=== PATIENT | female | born 1970 | race Two or more races ===

== ENCOUNTER 2025-04-01 12:54 | Emergency (ER) | payer OTHER ==
[~2025-04-01] VITALS: Ht 149.9 cm; Wt 64.9 kg
[2025-04-01 13:09] VITALS: O2SAT 97
[2025-04-01] MEDS ORDERED: CLONIDINE HCL 0.1 MG TABLET PO ONE (18:31)
[2025-04-01] MEDS ORDERED: COZAAR50 MG PO (19:42)
[2025-04-01 21:24] VITALS: BP 130/90
== END 2025-04-01 21:26 | disposition home or self-care (01) ==
LOC: ER 12:54
DX: S09.8XXA Other specified injuries of head, initial encounter (principal); W01.0XXA Fall on same level from slipping, tripping and stumbling without subsequent striking against object, initial encounter; Y93.89 Activity, other specified; Y92.018 Other place in single-family (private) house as the place of occurrence of the external cause; I10 Essential (primary) hypertension; Z88.0 Allergy status to penicillin